=== PATIENT | male | born 1980 | race American Indian/Alaskan Native ===

== ENCOUNTER 2017-10-31 19:38 | Emergency (ER) | payer SELFPAY ==
[2017-10-31 19:58] VITALS: BP 137/87; PULSE 86; TEMP 99.1; O2SAT 97
--- NOTE | 2017-10-31 21:29 | C.PDOC ---
History Of Present Illness 37 year old male presents to the ED complaining of a sore throat and intermittent subjective fever for 4 days. Patient has not taken any over-the- counter medications for symptom relief. Denies any associated cough or shortness of breath. Time Seen by Provider: 10/31/17 20:15 Chief Complaint (Nursing): ENT Problem History Per: Patient History/Exam Limitations: None Onset/Duration Of Symptoms: Days (x4) Current Symptoms Are (Timing): Still Present Past Medical History Reviewed: Historical Data, Nursing Documentation, Vital Signs Vital Signs: Last Vital Signs Temp 99.1 F 10/31/17 19:53 Pulse 86 10/31/17 19:53 Resp 20 10/31/17 21:53 BP 137/87 10/31/17 19:53 Pulse Ox 97 10/31/17 21:37 - Medical History PMH: Asthma Family History: States: No Known Family Hx - Social History Hx Alcohol Use: Yes Hx Substance Use: No - Immunization History Hx Influenza Vaccination: Yes Hx Pneumococcal Vaccination: No Review Of Systems Except As Marked, All Systems Reviewed And Found Negative. Constitutional: Positive for: Fever ENT: Positive for: Throat Pain. Negative for: Nose Congestion Respiratory: Negative for: Cough, Shortness of Breath Physical Exam - Physical Exam Appears: Non-toxic, No Acute Distress Skin: Normal Color, Warm, Dry Head: Atraumatic, Normacephalic Eye(s): bilateral: Normal Inspection, PERRL, EOMI Ear(s): Bilateral: Normal Oral Mucosa: Moist Throat: Erythema (Enlarged, erythematous tonsils), No Exudate Neck: Normal ROM, Supple Lymphatic: Adenopathy (Tender submandibular lymphadenopathy) Chest: Symmetrical Cardiovascular: Rhythm Regular Respiratory: No Rales, No Rhonchi, No Wheezing, Other (Lungs clear to auscultation) Neurological/Psych: Oriented x3, Normal Speech ED Course And Treatment O2 Sat by Pulse Oximetry: 97 (RA) Pulse Ox Interpretation: Normal Progress Note: Patient given 400 mg Motrin PO. Counseled patient regarding diagnosis and treatment plan. Patient will be discharged home with Zithromax. Advised to follow up with PMD for further evaluation. Return precautions d/w pt who expressed understanding Disposition Counseled Patient/Family Regarding: Diagnosis, Need For Followup, Rx Given - Disposition Referrals: [facility] [Outside] Disposition: HOME/ ROUTINE Disposition Time: 21:26 Condition: STABLE Additional Instructions: Gargle with warm salt water May use CHLORASEPTIC SPRAY TAKE MOTRIN 600MG NEEDED FOR PAIN Take meds as directed Return to ER if worse Prescriptions: Azithromycin [Zithromax] 250 mg PO DAILY #6 tab Instructions: Sore Throat, Adult (DC) Forms: [facility] (Danish) - POA Present On Arrival: None - Clinical Impression Clinical Impression: Pharyngitis - PA / LOAN INTERVIEWER / Resident Statement MD/DO has reviewed & agrees with the documentation as recorded. - Scribe Statement The provider has reviewed the documentation as recorded by the Scribe (Birdie Parker) All medical record entries made by the Scribe were at my direction and personally dictated by me. I have reviewed the chart and agree that the record accurately reflects my personal performance of the history, physical exam, medical decision making, and the department course for this patient. I have also personally directed, reviewed, and agree with the discharge instructions and disposition.
[2017-10-31 21:53] VITALS: RESP 20
== END 2017-10-31 21:53 | disposition home or self-care (01) ==
LOC: C.ER 19:38
DX: J02.9 Acute pharyngitis, unspecified (principal)